=== PATIENT | male | born 1990 | race Hispanic/Latino ===

== ENCOUNTER 2022-05-27 07:49 | Emergency (ER) | payer OTHER ==
[~2022-05-27] VITALS: Ht 167.6 cm; Wt 81.6 kg
[2022-05-27 07:51] VITALS: BP 130/83
[2022-05-27] MEDS ORDERED: PANTOPRAZOLE 40 MG/VIAL IVP ONE (08:00)
[2022-05-27] MEDS ORDERED: ONDANSETRON 4MG INJ IVP ONE (08:00)
[2022-05-27] MEDS ORDERED: LACTATED RINGERS 1000ML 1,000 ML IV ONE (08:00)
[2022-05-27 08:17] LABS: BASOPHILS % (AUTO) 0.3 % (0.0-5.0); LYMPHOCYTES % (AUTO) 2.3 % (21.0-51.0); MEAN CORPUSCULAR HEMOGLOBIN 30.6 pg (27.0-33.0); MEAN CORPUSCULAR HGB CONC 33.5 g/dL (32.0-36.0); MEAN CORPUSCULAR VOLUME 91.4 fL (79-99); MONOCYTES % (AUTO) 2.1 % (3.0-13.0); NEUTROPHILS % (AUTO) 94.7 % (40.0-77.0); NUCLEATED RED BLOOD CELLS 0.1 % (0.0-0.19); PLATELET COUNT (AUTO) 242 K/uL (130-400); RED BLOOD CELL COUNT(AUTO) 5.91 MIL/uL (4.50-6.20); RED CELL DISTRIBUTION WIDTH 13.6 % (11.0-15.5); WHITE BLOOD COUNT (AUTO) 23.9 K/uL (4.8-10.8)
[2022-05-27] MEDS ORDERED: ACETAMINOPHEN 500 MG TABLET PO ONE (08:30)
[2022-05-27 08:31] LABS: ALBUMIN 5.4 g/dL (3.5-5.0); CREATININE 1.6 mg/dL (0.5-1.5); POTASSIUM 4.3 mmol/L (3.5-5.1); TOTAL PROTEIN, SERUM 9.6 g/dL (6.0-8.3)
[2022-05-27] MEDS ORDERED: ZOSYN 3.375GM +NS 50ML IV STA (08:44)
[2022-05-27] MEDS ORDERED: IOHEXOL 350 MG/ML 100ML INFUS..BTL IV ONE (09:06)
[2022-05-27] MEDS ORDERED: PANT40TA55 PO (10:36)
[2022-05-27] MEDS ORDERED: CIPR-279 PO (10:36)
[2022-05-27 10:42] LABS: APPEARANCE,URINE CLEAR (CLEAR); BILIRUBIN,URINE NEGATIVE (NEGATIVE); COLOR,URINE LIGHT-YELLOW (YELLOW); GLUCOSE, URINE (UA) NEGATIVE (NEGATIVE); KETONES,URINE NEGATIVE (NEGATIVE); LEUKOCYTE ESTERASE ,URINE NEGATIVE Leu/uL (NEGATIVE); NITRATE,URINE NEGATIVE (NEGATIVE); OCCULT BLOOD,URINE SMALL (NEGATIVE); PROTEIN,URINE 30 mg/dL (NEGATIVE); UROBILINOGEN,URINE 0.2 mg/dL (0.2-1.0)
[2022-05-27 10:45] LABS: MUCUS,URINE RARE LPF (None Seen)
== END 2022-05-27 10:50 | disposition home or self-care (01) ==
LOC: EDH 07:49
DX: K52.9 Noninfective gastroenteritis and colitis, unspecified (principal); F12.10 Cannabis abuse, uncomplicated
CPT/HCPCS: 99285; 74177; 96374; 96375; 96361; 80053; 83690; 85025; 81001; 36415; J7120; J2405; J2543; C9113; Q9967